=== PATIENT | female | born 1975 | race Caucasian/White ===

== ENCOUNTER 2022-02-16 09:55 | Outpatient (CLI) | payer OTHER, SELFPAY ==
--- NOTE | 2022-02-16 10:15 | CRLHL7_ITS ---
For Patients: As a result of the Century Cures Act, medical imaging exams and procedure reports are released immediately into your electronic medical record. You may view this report before your referring provider. If you have questions, please contact your health care provider. BILATERAL SCREENING MAMMOGRAM WITH COMPUTER-AIDED DETECTION AND TOMOSYNTHESIS TECHNIQUE: CC and MLO views were obtained. These mammographic images have been obtained using full-field digital technique. These mammographic images were interpreted with the benefit of computer-aided detection. Breast Tomosynthesis was used in this interpretation. COMPARISON FILM: 02/02/16. FINDINGS: The breasts are heterogeneously dense, which may obscure small masses IMPRESSION: There is no radiographic evidence for malignancy. ASSESSMENT: BI-RADS Category 2: Benign RECOMMENDATION: Routine screening mammogram in 1 year. A lay language report of this examination will be provided to the patient. Tor Vargas M.D. Diagnostic Radiologist [email or web address] Transcribed: 3:45 pm DW/Dictated by: Tor Vargas MD @ 02/16/2022 11:45:00 AM (Electronically Signed)
== END 2022-02-16 09:56 | disposition home or self-care (01) ==
LOC: MAMMO 09:56
PROVIDERS: PCP Physician Assistant Medical; Visit Provider Physician Assistant
DX: Z12.31 Encounter for screening mammogram for malignant neoplasm of breast (principal); R92.2 Inconclusive mammogram
CPT/HCPCS: 77063; 77067

== ENCOUNTER 2022-03-14 12:41 | Outpatient (CLI) | payer OTHER, SELFPAY ==
[2022-03-14 16:39] LABS: TSH With Reflex to FT4* 0.104 uIU/mL (0.270-4.200)
[2022-03-15 09:09] LABS: Free T4 Free Thyroxine* 1.77 ng/dL (0.70-1.85)
== END 2022-03-14 12:42 | disposition home or self-care (01) ==
LOC: NFLDREF 12:42
PROVIDERS: PCP Physician Assistant Medical; Visit Provider Physician Assistant
DX: E89.0 Postprocedural hypothyroidism (principal)
CPT/HCPCS: 84439; 84443

== ENCOUNTER 2022-05-12 12:30 | Outpatient (CLI) | payer OTHER, SELFPAY ==
[2022-05-12 22:22] LABS: Free T4 Free Thyroxine* 1.74 ng/dL (0.70-1.85)
[2022-05-12 22:36] LABS: Thyroid Stimulating Hormone* 0.695 uIU/mL (0.270-4.20)
== END 2022-05-12 12:31 | disposition home or self-care (01) ==
PROVIDERS: PCP Physician Assistant Medical; Visit Provider Physician Assistant
DX: E89.0 Postprocedural hypothyroidism (principal)
CPT/HCPCS: 84439; 84443

== ENCOUNTER 2023-05-28 13:00 | Outpatient (CLI) | payer OTHER, SELFPAY | END 2023-05-28 13:01 | disposition home or self-care (01) | LOC: FRMREF 13:03 | PROVIDERS: PCP Physician Assistant Medical; Visit Provider Physician Assistant | DX: Z00.00 Encounter for general adult medical examination without abnormal findings (principal); E89.0 Postprocedural hypothyroidism; E66.9 Obesity, unspecified | CPT/HCPCS: 84443 ==

== ENCOUNTER 2023-06-27 09:30 | Outpatient (CLI) | payer OTHER, SELFPAY | END 2023-06-27 09:31 | disposition home or self-care (01) | LOC: NFLDREF 06-28 08:35 | PROVIDERS: PCP Physician Assistant Medical; Referring Provider Physician Assistant Medical; Visit Provider Physician Assistant Medical | DX: Z00.00 Encounter for general adult medical examination without abnormal findings (principal); E66.9 Obesity, unspecified; E89.0 Postprocedural hypothyroidism; Z13.6 Encounter for screening for cardiovascular disorders | CPT/HCPCS: 80053; 80061 ==

== ENCOUNTER 2023-09-12 10:13 | Outpatient (CLI) | payer OTHER, SELFPAY ==
--- NOTE | 2023-09-12 10:15 | MM_ITS ---
Patient: YENNI WATT Facility:?[facility] Patient ID:?[id number] Site Patient ID:?[id number]. Site :?[id number] Study:?XRay-Breast Bilateral 3D W/CAD-09/12/2023 10:37:41 AM Ordering Physician:?Oralia Ayala Final Report: BILATERAL SCREENING MAMMOGRAM WITH COMPUTER-AIDED DETECTION AND TOMOSYNTHESIS TECHNIQUE: CC and MLO views were obtained. These mammographic images have been obtained using full-field digital technique. These mammographic images were interpreted with the benefit of computer-aided detection. Breast Tomosynthesis was used in this interpretation. COMPARISON FILM: 02/16/22, 02/02/16. FINDINGS: The breasts are extremely dense, which lowers the sensitivity of mammography. IMPRESSION: There is no radiographic evidence for malignancy. ASSESSMENT: BI-RADS Category 1: Negative RECOMMENDATION: Routine screening mammogram in 1 year. A lay language report of this examination will be provided to the patient. Tor Vargas M.D. Diagnostic Radiologist [email or web address] DSM/sp R& Transcribed: 5:59 p.m. SP/Dictated by: Tor Vargas MD @ 09/12/2023 12:57:00 PM Signed by:?Tor Vargas MD @09/13/2023 5:41:00 AM (Electronic Signature)
== END 2023-09-12 10:14 | disposition home or self-care (01) ==
LOC: MAMMO 10:14
PROVIDERS: PCP Physician Assistant Medical; Visit Provider Physician Assistant Medical
DX: Z12.31 Encounter for screening mammogram for malignant neoplasm of breast (principal); R92.2 Inconclusive mammogram
CPT/HCPCS: 77063; 77067

== ENCOUNTER 2024-08-05 08:10 | Outpatient (CLI) | payer OTHER, SELFPAY ==
[2024-08-10 03:03] LABS: HPV Source Cervical/Vag; HPV, High Risk by TMA Detected
[2024-08-11 16:14] LABS: HPV Genotype 16 by TMA Not Detected; HPV Genotype 18/45 by TMA Not Detected; HPVG Source Cervical/Vag
[2024-08-15 14:42] LABS: Pap Test Reviewed by Path Done
== END 2024-08-05 08:11 | disposition home or self-care (01) ==
PROVIDERS: PCP Physician Assistant Medical; Visit Provider Physician Assistant Medical
DX: E03.9 Hypothyroidism, unspecified (principal); R87.810 Cervical high risk human papillomavirus (HPV) DNA test positive; Z13.228 Encounter for screening for other metabolic disorders; Z13.220 Encounter for screening for lipoid disorders; Z11.51 Encounter for screening for human papillomavirus (HPV); Z12.4 Encounter for screening for malignant neoplasm of cervix
CPT/HCPCS: 80053; 80061; 84443; 87624; 87625; 88141; 88142

== ENCOUNTER 2024-08-19 09:13 | Outpatient (CLI) | payer OTHER, SELFPAY ==
--- NOTE | 2024-08-19 10:33 | P.ANES_ITS ---
Anesthesia Charges Start Date/Time Anesthesia Start Date: 08/19/24 Anesthesia Start Time: 10:03 Stop Date/Time Anesthesia Stop Date: 08/19/24 Anesthesia Stop Time: 10:31 Coding CPT Codes CPT Codes: JOSHUA LWR INTST SCR COLSC - 13777 ([id number]) P2 - PATIENT W/MILD SYST DISEASE, QK - ASSEMBLY PRESS OPERATOR 2-4 CNCRNT ANES PROC, QX - METAL DRILLING MACHINE OPERATOR SVC W/ MD MED DIRECTION
--- NOTE | 2024-08-19 10:33 | W.ANESCHARGE ---
Anesthesia Charges Start Date/Time Anesthesia Start Date: 08/19/24 Anesthesia Start Time: 10:03 Stop Date/Time Anesthesia Stop Date: 08/19/24 Anesthesia Stop Time: 10:31 Coding CPT Codes CPT Codes: JOSHUA LWR INTST SCR COLSC - 47027 ([id number]) P2 - PATIENT W/MILD SYST DISEASE, QK - CELLOPHANE CASTING MACHINE REPAIRER 2-4 CNCRNT ANES PROC, QX - MICROBIOLOGY COORDINATOR SVC W/ MD MED DIRECTION
--- NOTE | 2024-08-19 12:05 | P.ANES_ITS ---
Anesthesia Charges Start Date/Time Anesthesia Start Date: 08/19/24 Anesthesia Start Time: 10:03 Stop Date/Time Anesthesia Stop Date: 08/19/24 Anesthesia Stop Time: 10:31 Coding CPT Codes CPT Codes: JOSHUA LWR INTST SCR COLSC - 68873 ([id number]) P2 - PATIENT W/MILD SYST DISEASE, QX - MANAGER OF COMPENSATION SVC W/ MD MED DIRECTION, QK - POWER PLANT ASSISTANT 2-4 CNCRNT ANES PROC
--- NOTE | 2024-08-19 12:05 | W.ANESCHARGE ---
Anesthesia Charges Start Date/Time Anesthesia Start Date: 08/19/24 Anesthesia Start Time: 10:03 Stop Date/Time Anesthesia Stop Date: 08/19/24 Anesthesia Stop Time: 10:31 Coding CPT Codes CPT Codes: JOSHUA LWR INTST SCR COLSC - 90123 ([id number]) P2 - PATIENT W/MILD SYST DISEASE, QX - CANE PUSHER SVC W/ MD MED DIRECTION, QK - NEEDLE PROCESS FELT GOODS SUPERVISOR 2-4 CNCRNT ANES PROC
== END 2024-08-19 09:14 | disposition home or self-care (01) ==
LOC: OP CLINIC 09:13
PROVIDERS: PCP Physician Assistant Medical; Visit Provider Surgery
DX: Z12.11 Encounter for screening for malignant neoplasm of colon (principal); K64.8 Other hemorrhoids
CPT/HCPCS: 00812; 45378; J2704